=== PATIENT | female | born 1985 | race Caucasian/White ===

== ENCOUNTER 2020-09-29 21:15 | Emergency (ER) | payer MEDICAID ==
[~2020-09-29] VITALS: Ht 165.1 cm; Wt 90.7 kg
[2020-09-29 21:40] VITALS: BP 127/97
--- NOTE | 2020-09-29 21:45 | NUR ---
patient ambulated to lobby, waiting to be seen.
--- NOTE | 2020-09-29 22:13 | NUR ---
PT TAKEN TO BED 12
--- NOTE | 2020-09-29 22:34 | NUR ---
Dr. Negrete examining patient.
--- NOTE | 2020-09-29 22:38 | NUR ---
SEE PATIENT ASSESSMENT FOR MORE INFORMATION.
[2020-09-29] MEDS ORDERED: LIDOCAINE MPF 1% 10 MG/ML VIAL INJ ONE ×2 (22:50→23:05)
[2020-09-29] MEDS ORDERED: KETOROLAC 60 MG/2 ML VIAL IM ONE (22:50)
[2020-09-29] MEDS ORDERED: IBUP-2218 PO (22:52)
[2020-09-29] MEDS ORDERED: AMOX1TAB8 PO (22:52)
--- NOTE | 2020-09-29 23:02 | NUR ---
per ERMD Azubuike - pull additional vial of lidocaine 1% for ERMD administration.
[2020-09-29 23:19] VITALS: BP 127/97
--- NOTE | 2020-09-29 23:19 | NUR ---
Patient discharged with v/s stable. Written and verbal after care instructions given and explained. Patient alert, oriented and verbalized understanding of instructions. Ambulatory with steady gait. All questions addressed prior to discharge. ID band removed. Patient advised to follow up with PMD. Rx of AMOX-CLAV, IBUPROFEN given. Patient educated on indication of medication including possible reaction and side effects. Opportunity to ask questions provided and answered.
== END 2020-09-29 23:19 | disposition home or self-care (01) ==
LOC: MED 21:15
DX: K08.89 Other specified disorders of teeth and supporting structures (principal)
CPT/HCPCS: 64400; 81025; 96372; 99284; J1885; J2001

== ENCOUNTER 2020-12-12 15:52 | Emergency (ER) | payer MEDICAID ==
[~2020-12-12] VITALS: Ht 165.1 cm; Wt 90.7 kg
[~2020-12-12 15:52] MED LIST: AMOX1TAB8 PO; IBUP-2218 PO
[2020-12-12 15:58] VITALS: BP 142/73
--- NOTE | 2020-12-12 16:02 | NUR ---
Pt ambulated to ER bed 5 with a steady gait.
--- NOTE | 2020-12-12 16:03 | NUR ---
Ambulated to bed 5
--- NOTE | 2020-12-12 16:18 | NUR ---
35/F presents to ED with c/o vaginal bleeding and lower abdominal cramping. Patient states since this morning she noticed light pink blood after using the restroom, stated the blood increased throughout the morning and turned bright red and noticed clots in her urine. Patient states she had a positive test on Tuesday at her doctors office. Patient denies nausea, vomiting, dizziness, sob or chest pain. Patient states it is a constant 7/10 sharp pain, patient A0.
[2020-12-12 16:29] LABS: BASOPHILS # (AUTO) 0.1 K/uL (0.00-0.22); BASOPHILS % (AUTO) 0.8 % (0.0-2.0); EOSINOPHILS # (AUTO) 0.1 K/uL (0-0.4); EOSINOPHILS % (AUTO) 1.1 % (0.0-4.0); HEMATOCRIT 40.2 % (36-48); HEMOGLOBIN 13.7 g/dL (12.0-16.0); LYMPHOCYTES # (AUTO) 2.7 K/uL (2.5-16.5); LYMPHOCYTES % (AUTO) 26.3 % (20.5-51.1); MEAN CORPUSCULAR HEMOGLOBIN 30 pg (27-31); MEAN CORPUSCULAR HGB CONC 34 g/dL (33-37); MONOCYTES # (AUTO) 0.6 K/uL (0.8-1.0); MONOCYTES % (AUTO) 5.8 % (1.7-9.3); NEUTROPHILS # (AUTO) 6.9 K/uL (1.8-7.7); PLATELET COUNT (AUTO) 357 K/uL (140-450); RED BLOOD CELL COUNT(AUTO) 4.52 MIL/uL (4.20-5.40); RED CELL DISTRIBUTION WIDTH 13.8 % (11.6-13.7); WHITE BLOOD COUNT (AUTO) 10.4 K/uL (4.8-10.8)
[2020-12-12 16:44] LABS: BILIRUBIN,URINE NEGATIVE (NEGATIVE); BLOOD, URINE 3+ (NEGATIVE); LEUKOCYTE ESTERASE ,URINE 1+ (NEGATIVE); NITRITE, URINE POSITIVE (NEGATIVE); UGLUCOSE NEGATIVE (NEGATIVE)
--- NOTE | 2020-12-12 17:08 | NUR ---
Dr. Kilpatrick is evaluating the patient at bedside.
[2020-12-12 17:09] LABS: APPEARANCE,URINE BLOODY (CLEAR); COLOR,URINE RED (YELLOW)
[2020-12-12 17:12] LABS: RBC,URINE TOO NUMEROUS TO COUN /HPF (0-5)
[2020-12-12] MEDS ORDERED: NITR100C7 PO (17:25)
[2020-12-12 17:38] VITALS: BP 142/73
--- NOTE | 2020-12-12 17:38 | NUR ---
Patient discharged with v/s stable. Written and verbal after care instructions about threatened miscarriage, UTI given and explained. Patient alert, oriented and verbalized understanding of instructions. Ambulatory with steady gait. All questions addressed prior to discharge. ID band removed. Patient advised to follow up with PMD. Rx of macrobid given. Patient educated on indication of medication including possible reaction and side effects. Opportunity to ask questions provided and answered.
== END 2020-12-12 17:38 | disposition home or self-care (01) ==
LOC: MED 15:52
DX: O23.41 Unspecified infection of urinary tract in pregnancy, first trimester (principal); O20.0 Threatened abortion; Z3A.01 Less than 8 weeks gestation of pregnancy; Z79.899 Other long term (current) drug therapy
CPT/HCPCS: 36415; 76817; 81001; 81025; 84702; 85025; 86900; 86901; 87086; 99284

== ENCOUNTER 2020-12-14 14:40 | Emergency (ER) | payer MEDICAID ==
[~2020-12-14] VITALS: Ht 162.6 cm; Wt 102.5 kg
[~2020-12-14 14:40] MED LIST changes: +NITR100C7 PO
[2020-12-14 15:03] VITALS: BP 124/93
[2020-12-14 15:35] LABS: BASOPHILS # (AUTO) 0.1 K/uL (0.00-0.22); BASOPHILS % (AUTO) 0.7 % (0.0-2.0); EOSINOPHILS # (AUTO) 0.1 K/uL (0-0.4); EOSINOPHILS % (AUTO) 1.3 % (0.0-4.0); HEMATOCRIT 39.1 % (36-48); HEMOGLOBIN 13.1 g/dL (12.0-16.0); LYMPHOCYTES # (AUTO) 2.1 K/uL (2.5-16.5); LYMPHOCYTES % (AUTO) 23.8 % (20.5-51.1); MEAN CORPUSCULAR HEMOGLOBIN 30 pg (27-31); MEAN CORPUSCULAR HGB CONC 34 g/dL (33-37); MONOCYTES # (AUTO) 0.4 K/uL (0.8-1.0); MONOCYTES % (AUTO) 4.5 % (1.7-9.3); NEUTROPHILS # (AUTO) 6.1 K/uL (1.8-7.7); NEUTROPHILS % (AUTO) 69.7 % (42.2-75.2); PLATELET COUNT (AUTO) 341 K/uL (140-450); RED BLOOD CELL COUNT(AUTO) 4.34 MIL/uL (4.20-5.40); RED CELL DISTRIBUTION WIDTH 14.1 % (11.6-13.7); WHITE BLOOD COUNT (AUTO) 8.7 K/uL (4.8-10.8)
[2020-12-14 17:20] VITALS: BP 124/93
== END 2020-12-14 17:21 | disposition home or self-care (01) ==
LOC: MED 14:40
DX: O03.9 Complete or unspecified spontaneous abortion without complication (principal); Z79.899 Other long term (current) drug therapy
CPT/HCPCS: 36415; 84702; 85025; 99283